=== PATIENT | female | born 1985 | race Caucasian/White ===

== ENCOUNTER 2017-08-25 10:19 | Inpatient (IN) | payer MEDICAID ==
[~2017-08-25] VITALS: Ht 157.5 cm; Wt 62.4 kg
[2017-08-25] MEDS ORDERED: PREN-93 PO (10:29)
[2017-08-25 10:30] VITALS: BP 111/73; PULSE 98; RESP 18; Ht 157.5 cm; Wt 62.4 kg
--- NOTE | 2017-08-25 12:09 | RADRPT ---
PROCEDURE: US OB biophysical profile. CLINICAL INDICATION: decreased movements, contractions, leaking fluid TECHNIQUE: Multiple sonographic images of the pelvis were obtained. The images were reviewed on a PACS workstation. COMPARISON: No prior studies are available for comparison. FINDINGS: There is a single viable intrauterine gestation. Cardiac activity is present with 122 beats per min julius. There is a vertex presentation. The placenta is posterior. There is no evidence of placental abruption. There is a decreased amount of amniotic fluid with an DAVID = 4.7 cm. Biophysical profile: movement 2/2 tone 2/2. breathing 2/2 DAVID 0/2 Total 04/09 RPTAT: AA . IMPRESSION: Abnormal biophysical profile. Oligohydramnios. . .Tyrone Nassar MD, MD Date Time Electronically viewed and signed by .Tyrone Nassar MD, MD on 08/25/2017 12:09 .S/
--- NOTE | 2017-08-25 12:39 | HP ---
Date/Time of Note Date/Time of Note DATE: 08/25/17 TIME: 12:38 OB - History Hx of Present Free Text/Dictation 34+wks With Suspected PPROM : 1 Para: 0 Care: Good Care Ultrasounds: Normal mid trimester US Obstetrical Complications: None Medical Complications: None Past Family/Social History * Past Medical, Surgical, Family and Obstetric Histories reviewed from chart. OB Admission Exam Vital Signs Vital Signs Vital Signs Date Time Temp Pulse Resp B/P Pulse Ox O2 Delivery O2 Flow Rate FiO2 08/25/17 10:30 98.8 98 18 111/73 98 Room Air Physical Exam Abdomen: WNL Extremities: Normal Cervical Dilatation: None Effacement: 0% Station: Ballotable Membranes: Intact Heart Rate: 140's Accelerations: Accelerations Present Decelerations: No Decelerations Varibility: Moderate OB Assessment/Plan Reason for admission: observation Plan: Expectant Management Other plan: ROM + ---->Negative DAVID 4.7 ---- IV hyration prenatalogy consult Continious monitoring PEG CARRANZA M.D. Aug 25, 2017 12:39
--- NOTE | 2017-08-25 12:43 | TRIAGE ---
OB Triage Datetime Report Generated by CPN: 08/25/2017 12:43 Datetime: 08/25/2017 11:31 Vaginal Exam Dilatation (cms): 0.0 Datetime: 08/25/2017 10:26 Assessment Type: Triage Maternal Assessment Level of Consciousness: Fully Conscious DTR's/Clonus: DTRs 2+; No Clonus Headache: Denies Blurred Vision: No Respiratory Effort: Unlabored; Regular Rhythm; Equal Expansion Breath Sounds, Left: Clear and Equal Breath Sounds, Right: Clear and Equal Nausea/Vomiting: Denies RUQ Epigastric Pain: Denies Lower Extremities Edema: None Degree: None Upper Extremities Edema: None Degree: None Facial Edema: None Fall Risk Assessment History of Falling: (0) No Secondary Diagnosis: (0) No Ambulatory Aid: (0) Bedrest/Nurse Assist IV Therapy: (0) No Gait: (0) Normal/Bedrest/Immobile Mental Status: (0) Oriented to Own Ability Fall Score: 0 Fall Risk Score Definition: No Risk: No action required Datetime: 08/25/2017 10:25 Time of Arrival: 08/25/2017 10:07 EGA: 34.4 Arrived By: Ambulatory Arrived From: Home Chief Complaint: PT HERE C/O VAGINAL LEAKING Movement: Present Contractions: Denies/Absent Rupture of Membranes: Unsure Vaginal Bleeding: None Vaginal Discharge: Present Recent Sexual Intercouse: Denies Abdominal Trauma: Not Applicable Patient Complaints: None Time Provider Notified: 08/25/2017 10:40 Provider Notified: GHAYOORI Initial Plan: ROM PLUS, BPP, SVE Datetime: 08/25/2017 10:23 Labor Evaluation Monitor Mode: External Heart Rate Monitor Mode: External US
[2017-08-25] MEDS: LACTATED RINGER'S 1,000 ML IV SCH ×2 (13:00→19:07)
[2017-08-26] MEDS: LACTATED RINGER'S 1,000 ML IV SCH ×3 (02:53→18:23)
[2017-08-26] MEDS: PRENATAL VITAMIN PO SCH (08:55)
--- NOTE | 2017-08-26 15:13 | RADRPT ---
PROCEDURE: US evaluation of amniotic fluid volume. CLINICAL INDICATION: Low amniotic fluid volume. TECHNIQUE: Multiple sonographic images of the gravid uterus were obtained utilizing galloway-scale lo ging. Sagittal and transverse images were obtained. The images were reviewed on a PACS workstation . DAVID was measured. COMPARISON: 08/25/2017. FINDINGS: There is a single live intrauterine . heart rate is 166 beats per minute. Position is cephalic. Placenta is anterior grade 1 with no abruption or previa. DAVID is 7.7 cm. (Normal = 5-20 cm.) IMPRESSION: 1. DAVID is 7.7 cm. RPTAT: QQ .Jackson Orozco MD, Date Time Electronically viewed and signed by .Jackson Orozco MD, on 08/26/2017 15:12 .R/
--- NOTE | 2017-08-26 17:49 | QN ---
Documentation Comment Afebrile vital signs are stable Denies leakage of fluid from the vagina, commended patient to use dry Pad, there was no sign of leakage after patient walking, standing or sitting, DAVID today 7.4 recommended hydration, repeat DAVID CHRISTEL Henson MD Aug 26, 2017 17:49
[2017-08-27] MEDS: LACTATED RINGER'S 1,000 ML IV SCH ×3 (02:04→18:06)
--- NOTE | 2017-08-27 09:13 | RADRPT ---
PROCEDURE: US OB. CLINICAL INDICATION: Leaking fluid , pain TECHNIQUE: Transabdominal views of the pelvis are available for review. COMPARISON: US PELVIS 08/26/2017 FINDINGS: There is a single intrauterine gestation in a vertex position. The heart rate is noted at 152 bpm. The placenta is anterior. The DAVID measures 7.2 cm. RPTAT: AA IMPRESSION: Mild oligohydramnios. .Tyrone Nassar MD, MD Date Time Electronically viewed and signed by .Tyrone Nassar MD, MD on 08/27/2017 09:13 .S/
[2017-08-27] MEDS: PRENATAL VITAMIN PO SCH (09:34)
--- NOTE | 2017-08-27 10:22 | DS ---
Date/Time of Note Date/Time of Note DATE: 08/27/17 TIME: 10:19 Obstetrical Discharge Record Final Diagnosis Final Diagnosis: not delivered Complications Other (Rule out premature rupture of membrane, low DAVID) Rupture of Membranes: No Condition on Discharge Physical Assessment Voiding: Yes Bowel Movement: Yes Calf Tenderness: No Patient Condition: Good CHRISTEL ARBOLEDA MD Aug 27, 2017 10:22
--- NOTE | 2017-08-27 10:37 | PDOCDIS ---
Discharge Instructions CONDITION Patient Condition: Good HOME CARE INSTRUCTIONS: Diet Instructions: Regular ACTIVITY: Activity Restrictions: No Restrictions Bathing Restrictions: Shower FOLLOW UP/APPOINTMENTS Follow-up Plan 34 weeks 4 days G1 p 0 was admitted to rule out premature rupture of membrane with DAVID of 4.7 after adequate hydration her DAVID is ranging between 7.4 to 7.2, all tests for premature rupture of membrane has been negative, category 1 heart tracing , perinatologist recommended to discharge patient, she will be [facility] at [facility], she has an appointment to repeat DAVID on08/29/17 at triage unit of [facility], received adequate labor instructions. CHRISTEL ARBOLEDA MD Aug 27, 2017 10:37
[2017-08-28] MEDS: LACTATED RINGER'S 1,000 ML IV SCH ×2 (01:34→08:54)
--- NOTE | 2017-08-28 02:03 | CONS ---
DATE OF ADMISSION: 08/25/2017 DATE OF CONSULTATION: 08/27/2017 HISTORY OF PRESENT ILLNESS: The patient is a 32-year-old who presented with complaint of contractio ns. She was admitted because of low DAVID. At the time of admission 2 days ago her DAVID was 4.6. The repeat yesterday was 7.2 and 7.4 cm, and today is 7.2 cm. They did a ROM Plus and the result was n egative, and the patient after reverse Trendelenburg and walking, it came back negative; however, be fore admission she experienced twice leakage of fluid to the point that she had to change her underw ear twice. Since then she mentioned that it has been stopped. Her history overall is not significant. heart tone is reassuring. She has no contractions. IMPRESSION: Intrauterine at 34 weeks and 6 days with oligohydramnios and ROM Plus negativ e; however, her history is very dubious for rupture of membranes. Also, after over almost 72 hours of fluid hydration, her DAVID has essentially remained at about 7.2 cm. RECOMMENDATIONS: Continue with IV hydration. Re-evaluate the DAVID tomorrow. If the DAVID is above 8 cm, then we can consider discharge home with very much precautions for rupture of the membrane and t hen maternal fever and she needs to return on Thursday at the latest to recheck the amniotic fluid ind ex. If the fluid is less than 8 cm then it is best for her to be in the hospital and the chance of rupture of membrane is high. Dictated By: MITCH MCDERMOTT/KAYE Conf#: [id number] DID#: [id number]
[2017-08-28] MEDS: PRENATAL VITAMIN PO SCH (08:54)
--- NOTE | 2017-08-28 09:22 | RADRPT ---
PROCEDURE: US OB. CLINICAL INDICATION: Low DAVID , pain TECHNIQUE: Transabdominal views of the pelvis are available for review. COMPARISON: US 08/27/2017 FINDINGS: There is a single intrauterine gestation in a vertex position. The heart rate is noted at 139 bpm. The placenta is anterior. The DAVID measures 6.8 cm. RPTAT: AA IMPRESSION: Slightly decreased DAVID measuring 6.8 cm. .Tyrone Nassar MD, MD Date Time Electronically viewed and signed by .Tyrone Nassar MD, on 08/28/2017 09:22 .S/
--- NOTE | 2017-08-28 09:41 | QN ---
Documentation Comment She has been on IV hydration since admission her DAVID on admission 4.7 went up to 7.2 ,negative ROM plus , denies any leakage from the vagina or dampness on sanitary pad, her DAVID went down from 7.2 yesterday to6.8 this morning, telephone consult with perinatologist recommended stop IV hydration, only oral, repeat DAVID a.m. heart rate category 1 CHRISTEL ARBOLEDA MD Aug 28, 2017 09:40
[2017-08-28] MEDS ORDERED: AMPICILLIN 2 GM/NS (PMX) 100 ML IVPB ONE (10:00)
[2017-08-28] MEDS: AMPICILLIN 1 GM/NS (PMX) 50 ML IVPB SCH ×3 (13:48→20:58)
--- NOTE | 2017-08-28 16:31 | QN ---
Documentation Comment I spoke with Dr. Ho this AM regarding Ms Bell. She has had low fluid, somewhat responsive to PO hydration. I agree with the plan to switch to PO hydration; if she can maintain an DAVID of at least 6 with PO hydration, I would favor discharging her with twice weekly follow up as an outpatient. OMER WARREN MD Aug 28, 2017 16:31
[2017-08-29] MEDS: AMPICILLIN 1 GM/NS (PMX) 50 ML IVPB SCH ×3 (01:04→09:16)
[2017-08-29] MEDS: PRENATAL VITAMIN PO SCH (09:15)
--- NOTE | 2017-08-29 09:15 | RADRPT ---
PROCEDURE: US evaluation of amniotic fluid volume. CLINICAL INDICATION: Low amniotic fluid volume. TECHNIQUE: Multiple sonographic images of the gravid uterus were obtained utilizing galloway-scale lo ging. Sagittal and transverse images were obtained. The images were reviewed on a PACS workstation . DAVID was measured. COMPARISON: 08/28/2017. FINDINGS: There is a single live intrauterine . heart rate is 144 beats per minute. Position is cephalic. Placenta is anterior grade 1 with no abruption or previa. DAVID is 8.0 cm. (Normal = 5-20 cm.) IMPRESSION: 1. DAVID is 8.0 cm. RPTAT: QQ .Jackson Orozco MD, Date Time Electronically viewed and signed by .Jackson Orozco MD, on 08/29/2017 09:15 .R/
--- NOTE | 2017-08-29 11:28 | DS ---
Date/Time of Note Date/Time of Note DATE: 08/29/17 TIME: 11:17 Discharge Summary Admission/Discharge Info Admit Date/Time Aug 25, 2017 at 12:35 Discharge Date/Time 2016 at 11:30 am Discharge Diagnosis 34 weeks+ admitted to the hospital to rule out premature rupture of membrane old tests were negative due to low DAVID patient was kept in the hospital for further evaluation of amniotic fluid this morning ultrasound report for DAVID was 8 per perinatologist recommendation she she is discharged home with recommendation to return to triage unit on August 30, 2017 the morning to repeat DAVID . And advised return to the hospital if. Experiencing fluid leakage from the vagina or any other symptoms , other villegas keep the appointment with perinatology clinic and clinic she is receiving her care. Patient Condition: Good Procedures Workup for rule out premature rupture of membrane, Hx of Present Illness 34 weeks 4 days , suspected premature rupture of membrane, all tests were negative, at the time of discharge DAVID 8, recommended to return to the hospital a.m. to repeat DAVID Hospital Course Satisfactory Home Meds Reported Medications Vit No.124/Iron/FA ( Vitamin Tablet) 1 Each Tablet, 1 EACH PO DAILY, TAB 08/25/17 Follow-up Plan 34 weeks 4 days G1 p 0 was admitted to rule out premature rupture of membrane with DAVID of 4.7 after adequate hydration her DAVID is ranging between 7.4 to 7.2, all tests for premature rupture of membrane has been negative, category 1 heart tracing , perinatologist recommended to discharge patient, she will be followed at [facility], she has an appointment to repeat DAVID on08/29/17 at triage unit of [facility], received adequate labor instructions. Primary Care Provider Care Physician No Primary Time spent on discharge: < 30 minutes CHRISTEL ARBOLEDA MD Aug 29, 2017 11:28
== END 2017-08-29 12:10 | disposition home or self-care (01) | DRG 780 ==
LOC: OBT 10:19 → L-D 10:19 → OBT 12:35 → L-D 12:35 → OBG 14:41
PROVIDERS: ADMIT Obstetrics & Gynecology; ATTEND Obstetrics & Gynecology
DX: O47.03 False labor before 37 completed weeks of gestation, third trimester (principal); Z3A.34 34 weeks gestation of pregnancy
CPT/HCPCS: 76815; 76816; 76818; 84112; G0463; J0290; J7120

== ENCOUNTER 2017-08-30 08:07 | Outpatient (CLI) | payer MEDICAID ==
[~2017-08-30 08:07] MED LIST: PREN-93 PO
--- NOTE | 2017-08-30 08:48 | RADRPT ---
PROCEDURE: OB ultrasound for biophysical profile CLINICAL INDICATION: Oligohydramnios TECHNIQUE: Multiple sonographic images of the pelvis were obtained. Transabdominal views of the g ravid uterus are available for review. The images were reviewed on a PACS workstation. COMPARISON: OB ultrasound for DAVID dated 08/29/2017 FINDINGS: breathing movement = 2/2 tone = 2/2 motion = 2/2 DAVID = 2/2 DAVID = 7.6 cm Single live intrauterine with cardiac activity of 150 bpm. position is cephal ic. The placenta is anterior. IMPRESSION: 1. Single live intrauterine gestation. 2. Biophysical profile = 8/8. 3. DAVID = 7.6 cm. No significant interval change. RPTAT: HH .Lor Cr MD, Date Time Electronically viewed and signed by .Lor Cr MD, on 08/30/2017 08:47 .G/
[2017-08-30] MEDS ORDERED: LACTATED RINGER'S 1,000 ML IV SCH (09:30)
[2017-08-30 09:40] LABS: ADD UMIC YES; UR ASCORBIC ACID NEGATIVE (NEGATIVE); UR BILIRUBIN (Dip) NEGATIVE (NEGATIVE); UR BLOOD (Dip) 1+ mg/dL (NEGATIVE); UR CLARITY CLEAR (CLEAR); UR COLOR STRAW (YELLOW); UR GLUCOSE (Dip) NEGATIVE (NEGATIVE); UR KETONES (Dip) NEGATIVE (NEGATIVE); UR LEUKOCYTE ESTERASE (Dip) 1+ Leu/ul (NEGATIVE); UR NITRITE (Dip) NEGATIVE (NEGATIVE); UR RBC 3 /HPF (0-5); UR SPECIFIC GRAVITY (Dip) 1.004 (1.003-1.030); UR SQUAMOUS EPITHELIAL CELL FEW /HPF (FEW); UR TOTAL PROTEIN (Dip) NEGATIVE (NEGATIVE); UR UROBILINOGEN (Dip) NEGATIVE (NEGATIVE)
--- NOTE | 2017-08-30 12:02 | RADRPT ---
PROCEDURE: Obstetrical ultrasound for biophysical profile CLINICAL INDICATION: Biophysical profile. . TECHNIQUE: Obstetrical ultrasound of the uterus for biophysical profile. Transabdominal views are obtained. COMPARISON: 08/29/2017 FINDINGS: Single intrauterine gestation. Presentation: Cephalic. Placenta: Anterior. No evidence of placental abruption. No evidence of placenta previa. breathing movement = 2/2 tone = 2/2 motion = 2/2 DAVID = 2/2 DAVID = 9.5 cm heart rate: 146 beats per minute IMPRESSION: Single intrauterine gestation. Biophysical profile 06/09 RPTAT: AADD .Allan Ford MD, MD Date Time Electronically viewed and signed by .Allan Ford MD, on 08/30/2017 12:02 .B/
--- NOTE | 2017-08-30 13:09 | TRIAGE ---
OB Triage Datetime Report Generated by CPN: 08/30/2017 13:08 Datetime: 08/30/2017 12:20 Stage of : OB Triage Datetime: 08/30/2017 12:12 Monitor Mode: External US Datetime: 08/30/2017 11:27 Frequency: 0 Monitor Mode: External Pattern: Normal: <= 5 Contractions in 10 Minutes Resting [place]: Relaxed FHR Baseline Rate: 135 Monitor Mode: External US Variability: Moderate 6-25 bpm Accelerations: 10X10 Decelerations: None Category: Category I Pain Scale: 0 Pain Presence: None/Denies Pain Type: N/A Pain Goal: 3 Pain Relief Measures: Comfort Measures Datetime: 08/30/2017 10:30 Frequency: 0 Monitor Mode: External Resting [place]: Relaxed FHR Baseline Rate: 135 Monitor Mode: External US Variability: Moderate 6-25 bpm Accelerations: 10X10 Decelerations: None Category: Category I Pain Scale: 0 Pain Presence: None/Denies Pain Type: N/A Pain Goal: 3 Pain Relief Measures: Comfort Measures Datetime: 08/30/2017 09:28 Frequency: x1 Monitor Mode: External Duration (sec)2399: 50 Quality: Mild Pattern: Normal: <= 5 Contractions in 10 Minutes Resting [place]: Relaxed Contraction Comments: denies feeling FHR Baseline Rate: 135 Monitor Mode: External US Variability: Moderate 6-25 bpm Accelerations: 10X10 Decelerations: None Category: Category I Pain Scale: 0 Pain Presence: None/Denies Pain Type: N/A Pain Goal: 3 Datetime: 08/30/2017 09:15 Stage of : OB Triage Datetime: 08/30/2017 08:22 Stage of : OB Triage Assessment Type: Triage Level of Consciousness: Fully Conscious DTR's/Clonus: DTRs 2+; No Clonus Headache: Denies Blurred Vision: No Respiratory Effort: Unlabored; Regular Rhythm; Equal Expansion Breath Sounds, Left: Clear and Equal Breath Sounds, Right: Clear and Equal Nausea/Vomiting: Denies RUQ Epigastric Pain: Denies Facial Edema: None Temperature Route: Axillary History of Falling: (0) No Secondary Diagnosis: (0) No Ambulatory Aid: (0) Bedrest/Nurse Assist IV Therapy: (0) No Gait: (0) Normal/Bedrest/Immobile Mental Status: (0) Oriented to Own Ability Fall Score: 0 Fall Risk Score Definition: No Risk: No action required Frequency: 3-5 Monitor Mode: External Duration (sec)2399: 30-50 Quality: Mild Pattern: Normal: <= 5 Contractions in 10 Minutes Resting [place]: Relaxed FHR Baseline Rate: 135 Monitor Mode: External US Variability: Moderate 6-25 bpm Accelerations: 10X10 Decelerations: None Category: Category I Pain Scale: 0 Pain Presence: None/Denies Pain Type: N/A Pain Goal: 3 Pain Relief Measures: Comfort Measures Datetime: 08/30/2017 08:20 Time of Arrival: 08/30/2017 08:10 EGA: 35.2 Arrived By: Ambulatory Arrived From: Home Chief Complaint: F/U LOW DAVID, DENIES BLEEDING, UC'S OR LEAKING Movement: Decreased Contractions: Denies/Absent Rupture of Membranes: Denies Vaginal Bleeding: None Vaginal Discharge: Denies Recent Sexual Intercouse: Denies Abdominal Trauma: Not Applicable Patient Complaints: Urinary Frequency Time Provider Notified: 08/30/2017 09:15 Provider Notified: [email or web address] Initial Plan: MONITOR, U/A, BPP/DAVID, iv hydration, repeat david Datetime: 08/29/2017 11:06 Frequency: occasional Monitor Mode: External Quality: Mild Resting [place]: Relaxed Contraction Comments: pt denies feeling contractions, leaking of fluid, or blood from vagina. stat es fetus is actaive FHR Baseline Rate: 120 Monitor Mode: External US FHR Baseline Changes: No Baseline Change Variability: Moderate 6-25 bpm Accelerations: 15X15 Decelerations: None Category: Category I Datetime: 08/29/2017 09:26 Assessment Type: Ongoing Assessment Level of Consciousness: Fully Conscious DTR's/Clonus: DTRs 2+; No Clonus Headache: Denies Blurred Vision: No Respiratory Effort: Unlabored; Regular Rhythm; Equal Expansion Breath Sounds, Left: Clear and Equal Breath Sounds, Right: Clear and Equal Nausea/Vomiting: Denies RUQ Epigastric Pain: Denies Facial Edema: None History of Falling: (0) No Secondary Diagnosis: (0) No Ambulatory Aid: (0) Bedrest/Nurse Assist IV Therapy: (20) Yes Gait: (0) Normal/Bedrest/Immobile Mental Status: (0) Oriented to Own Ability Fall Score: 20 Fall Risk Score Definition: No Risk: No action required Datetime: 08/29/2017 08:00 Frequency: 0 Monitor Mode: External Resting [place]: Relaxed FHR Baseline Rate: 130 Monitor Mode: External US FHR Baseline Changes: No Baseline Change Variability: Moderate 6-25 bpm Accelerations: 15X15 Decelerations: None Category: Category I Datetime: 08/29/2017 07:39 Frequency: 0 Monitor Mode: External Resting [place]: Relaxed FHR Baseline Rate: 120 Monitor Mode: External US FHR Baseline Changes: No Baseline Change Variability: Moderate 6-25 bpm Accelerations: 15X15 Decelerations: None Category: Category I Datetime: 08/29/2017 07:00 Frequency: x5 Monitor Mode: External Duration (sec)2399: 40-90 Quality: Mild Resting [place]: Relaxed Contraction Comments: pt without complaint of uc pain. FHR Baseline Rate: 125 Monitor Mode: External US FHR Baseline Changes: No Baseline Change Variability: Moderate 6-25 bpm Accelerations: 15X15 Decelerations: None Category: Category I Datetime: 08/29/2017 06:00 Frequency: none Monitor Mode: External Resting [place]: Relaxed FHR Baseline Rate: 125 Monitor Mode: External US FHR Baseline Changes: No Baseline Change Variability: Moderate 6-25 bpm Accelerations: 15X15 Decelerations: None Category: Category I Datetime: 08/29/2017 05:33 Stage of : Antepartum Temperature Route: Oral Datetime: 08/29/2017 05:00 Frequency: none Monitor Mode: External Resting [place]: Relaxed FHR Baseline Rate: 125 Monitor Mode: External US FHR Baseline Changes: No Baseline Change Variability: Moderate 6-25 bpm Accelerations: 15X15 Decelerations: None Category: Category I Pain Scale: 0 Pain Presence: None/Denies Datetime: 08/29/2017 04:00 Frequency: none Monitor Mode: External Resting [place]: Relaxed FHR Baseline Rate: 130 Monitor Mode: External US FHR Baseline Changes: No Baseline Change Variability: Moderate 6-25 bpm Accelerations: 15X15 Decelerations: None Category: Category I Datetime: 08/29/2017 03:00 Frequency: x1 Monitor Mode: External Duration (sec)2399: 70 Quality: Mild Resting [place]: Relaxed Contraction Comments: pt without complaint of uc pain. FHR Baseline Rate: 130 Monitor Mode: External US FHR Baseline Changes: No Baseline Change Variability: Moderate 6-25 bpm Accelerations: 15X15 Decelerations: Variable Category: Category II Datetime: 08/29/2017 02:00 Frequency: x4 Monitor Mode: External Duration (sec)2399: 50-90 Quality: Mild Resting [place]: Relaxed Contraction Comments: pt without complaint of uc pain. FHR Baseline Rate: 125 Monitor Mode: External US FHR Baseline Changes: No Baseline Change Variability: Moderate 6-25 bpm Accelerations: 15X15 Decelerations: None Category: Category I Datetime: 08/29/2017 01:00 Frequency: none Monitor Mode: External Resting [place]: Relaxed FHR Baseline Rate: 130 Monitor Mode: External US FHR Baseline Changes: No Baseline Change Variability: Moderate 6-25 bpm Accelerations: 15X15 Decelerations: None Category: Category I Datetime: 08/29/2017 00:00 Frequency: x2 Monitor Mode: External Duration (sec)2399: 50-60 Quality: Mild Resting [place]: Relaxed Contraction Comments: pt without complaint of uc pain. FHR Baseline Rate: 135 Monitor Mode: External US FHR Baseline Changes: No Baseline Change Variability: Moderate 6-25 bpm Accelerations: 15X15 Decelerations: None Category: Category I Datetime: 08/28/2017 23:46 Stage of : Antepartum Temperature Route: Oral Datetime: 08/28/2017 23:00 Frequency: none Monitor Mode: External Resting [place]: Relaxed FHR Baseline Rate: 130 Monitor Mode: External US FHR Baseline Changes: No Baseline Change Variability: Moderate 6-25 bpm Accelerations: 15X15 Decelerations: None Category: Category I Datetime: 08/28/2017 22:00 Frequency: x1 Monitor Mode: External Duration (sec)2399: 40 Quality: Mild Resting [place]: Relaxed Contraction Comments: pt without complaint of uc pain. FHR Baseline Rate: 135 Monitor Mode: External US FHR Baseline Changes: No Baseline Change Variability: Moderate 6-25 bpm Accelerations: 15X15 Decelerations: None Category: Category I Datetime: 08/28/2017 21:00 Frequency: x2 Monitor Mode: External Duration (sec)2399: 40 Quality: Mild Resting [place]: Relaxed Contraction Comments: pt without complaint of uc pain. FHR Baseline Rate: 135 Monitor Mode: External US FHR Baseline Changes: No Baseline Change Variability: Moderate 6-25 bpm Accelerations: 15X15 Decelerations: None Category: Category I Datetime: 08/28/2017 20:00 Frequency: none Monitor Mode: External Resting [place]: Relaxed FHR Baseline Rate: 135 Monitor Mode: External US FHR Baseline Changes: No Baseline Change Variability: Moderate 6-25 bpm Accelerations: 15X15 Decelerations: None Category: Category I Datetime: 08/28/2017 19:39 Assessment Type: Ongoing Assessment Level of Consciousness: Fully Conscious DTR's/Clonus: DTRs 2+; No Clonus Headache: Denies Blurred Vision: No Respiratory Effort: Unlabored; Regular Rhythm; Equal Expansion Breath Sounds, Left: Clear and Equal Breath Sounds, Right: Clear and Equal Nausea/Vomiting: Denies RUQ Epigastric Pain: Denies Lower Extremities Edema: None Degree: None Upper Extremities Edema: None Degree: None Facial Edema: None History of Falling: (0) No Secondary Diagnosis: (0) No Ambulatory Aid: (0) Bedrest/Nurse Assist IV Therapy: (0) No Gait: (0) Normal/Bedrest/Immobile Mental Status: (0) Oriented to Own Ability Fall Score: 0 Fall Risk Score Definition: No Risk: No action required Datetime: 08/28/2017 19:36 Stage of : Antepartum Temperature Route: Oral Datetime: 08/28/2017 18:48 Frequency: 0 Monitor Mode: External Duration (sec)2399: 0 Pattern: Normal: <= 5 Contractions in 10 Minutes Resting [place]: Relaxed FHR Baseline Rate: 135 Monitor Mode: External US FHR Baseline Changes: No Baseline Change Variability: Moderate 6-25 bpm Accelerations: 15X15 Decelerations: None Category: Category I Datetime: 08/28/2017 17:56 Frequency: 0 Monitor Mode: External Duration (sec)2399: 0 Pattern: Normal: <= 5 Contractions in 10 Minutes Resting [place]: Relaxed FHR Baseline Rate: 135 Monitor Mode: External US FHR Baseline Changes: No Baseline Change Variability: Moderate 6-25 bpm Accelerations: 15X15 Decelerations: None Category: Category I Datetime: 08/28/2017 17:00 Frequency: 0 Monitor Mode: External Duration (sec)2399: 0 Pattern: Normal: <= 5 Contractions in 10 Minutes Resting [place]: Relaxed Contraction Comments: DENIES FEELING ANY UC'S FHR Baseline Rate: 135 Monitor Mode: External US FHR Baseline Changes: No Baseline Change Variability: Moderate 6-25 bpm Accelerations: 15X15 Decelerations: None Category: Category I Datetime: 08/28/2017 15:59 Frequency: 0 Monitor Mode: External Duration (sec)2399: 0 Pattern: Normal: <= 5 Contractions in 10 Minutes Resting [place]: Relaxed FHR Baseline Rate: 130 Monitor Mode: External US FHR Baseline Changes: No Baseline Change Variability: Moderate 6-25 bpm Accelerations: 15X15 Decelerations: None Category: Category I Datetime: 08/28/2017 14:59 FHR Baseline Rate: 130 Monitor Mode: External US FHR Baseline Changes: No Baseline Change Variability: Moderate 6-25 bpm Accelerations: 15X15 Decelerations: None Category: Category I Datetime: 08/28/2017 14:00 FHR Baseline Rate: 125 Monitor Mode: External US FHR Baseline Changes: No Baseline Change Variability: Moderate 6-25 bpm Accelerations: 15X15 Decelerations: None Category: Category I Comments: PT SITTING UP EATING LUNCH Datetime: 08/28/2017 12:59 Frequency: ONE NOTED IN ONE HOUR Monitor Mode: External Duration (sec)2399: 60 Pattern: Normal: <= 5 Contractions in 10 Minutes Resting [place]: Relaxed FHR Baseline Rate: 125 Monitor Mode: External US FHR Baseline Changes: No Baseline Change Variability: Moderate 6-25 bpm Accelerations: 15X15 Decelerations: None Category: Category I Datetime: 08/28/2017 12:00 Frequency: 2 NOTED IN ONE HOUR Monitor Mode: External Duration (sec)2399: 40-60 Pattern: Normal: <= 5 Contractions in 10 Minutes Resting [place]: Relaxed FHR Baseline Rate: 125 Monitor Mode: External US FHR Baseline Changes: No Baseline Change Variability: Moderate 6-25 bpm Accelerations: 15X15 Decelerations: None Category: Category I Datetime: 08/28/2017 10:56 Frequency: 0 Monitor Mode: External Duration (sec)2399: 0 Pattern: Normal: <= 5 Contractions in 10 Minutes Resting [place]: Relaxed FHR Baseline Rate: 130 Monitor Mode: External US FHR Baseline Changes: No Baseline Change Variability: Moderate 6-25 bpm Accelerations: 15X15 Decelerations: None Category: Category I Datetime: 08/28/2017 10:00 Frequency: 0 Monitor Mode: External Duration (sec)2399: 0 Pattern: Normal: <= 5 Contractions in 10 Minutes Resting [place]: Relaxed Contraction Comments: DENIES FEELING ANY UC'S FHR Baseline Rate: 125 Monitor Mode: External US FHR Baseline Changes: No Baseline Change Variability: Moderate 6-25 bpm Accelerations: 15X15 Decelerations: None Category: Category I Datetime: 08/28/2017 09:00 Frequency: 0 Monitor Mode: External Duration (sec)2399: 0 Pattern: Normal: <= 5 Contractions in 10 Minutes Resting [place]: Relaxed FHR Baseline Rate: 125 Monitor Mode: External US FHR Baseline Changes: No Baseline Change Variability: Moderate 6-25 bpm Accelerations: 15X15 Decelerations: None Category: Category I Datetime: 08/28/2017 08:08 Assessment Type: Ongoing Assessment Level of Consciousness: Fully Conscious DTR's/Clonus: DTRs 2+; No Clonus Headache: Denies Blurred Vision: No Respiratory Effort: Unlabored; Regular Rhythm; Equal Expansion Breath Sounds, Left: Clear and Equal Breath Sounds, Right: Clear and Equal Nausea/Vomiting: Denies RUQ Epigastric Pain: Denies Lower Extremities Edema: None Degree: None Upper Extremities Edema: None Degree: None Facial Edema: None History of Falling: (0) No Secondary Diagnosis: (0) No Ambulatory Aid: (0) Bedrest/Nurse Assist IV Therapy: (20) Yes Gait: (0) Normal/Bedrest/Immobile Mental Status: (0) Oriented to Own Ability Fall Score: 20 Fall Risk Score Definition: No Risk: No action required Datetime: 08/28/2017 07:59 Frequency: 0 Monitor Mode: External Duration (sec)2399: 0 Pattern: Normal: <= 5 Contractions in 10 Minutes Resting [place]: Relaxed FHR Baseline Rate: 130 Monitor Mode: External US FHR Baseline Changes: No Baseline Change Variability: Moderate 6-25 bpm Accelerations: 15X15 Decelerations: None Category: Category I Datetime: 08/28/2017 07:00 Frequency: none Monitor Mode: External Resting [place]: Relaxed FHR Baseline Rate: 125 Monitor Mode: External US FHR Baseline Changes: No Baseline Change Variability: Moderate 6-25 bpm Accelerations: 15X15 Decelerations: None Category: Category I Datetime: 08/28/2017 06:00 Frequency: x2 Monitor Mode: External Duration (sec)2399: 50-80 Quality: Mild Resting [place]: Relaxed Contraction Comments: pt without compalint of uc pain. FHR Baseline Rate: 125 Monitor Mode: External US FHR Baseline Changes: No Baseline Change Variability: Moderate 6-25 bpm Accelerations: 15X15 Decelerations: None Category: Category I Pain Scale: 0 Pain Presence: None/Denies Datetime: 08/28/2017 05:57 Stage of : Antepartum Temperature Route: Oral Datetime: 08/28/2017 05:00 Frequency: none Monitor Mode: External Resting [place]: Relaxed FHR Baseline Rate: 125 Monitor Mode: External US FHR Baseline Changes: No Baseline Change Variability: Moderate 6-25 bpm Accelerations: 15X15 Decelerations: Variable Category: Category II Datetime: 08/28/2017 04:00 Frequency: none Monitor Mode: External Resting [place]: Relaxed FHR Baseline Rate: 125 Monitor Mode: External US FHR Baseline Changes: No Baseline Change Variability: Moderate 6-25 bpm Accelerations: 15X15 Decelerations: Variable Category: Category II Datetime: 08/28/2017 03:00 Frequency: none Monitor Mode: External Resting [place]: Relaxed FHR Baseline Rate: 125 Monitor Mode: External US FHR Baseline Changes: No Baseline Change Variability: Moderate 6-25 bpm Accelerations: 15X15 Decelerations: None Category: Category I Datetime: 08/28/2017 02:00 Frequency: none Monitor Mode: External Resting [place]: Relaxed FHR Baseline Rate: 130 Monitor Mode: External US FHR Baseline Changes: No Baseline Change Variability: Moderate 6-25 bpm Accelerations: 15X15 Decelerations: None Category: Category I Datetime: 08/28/2017 01:00 Frequency: none Monitor Mode: External Resting [place]: Relaxed FHR Baseline Rate: 135 Monitor Mode: External US FHR Baseline Changes: No Baseline Change Variability: Moderate 6-25 bpm Accelerations: 15X15 Decelerations: None Category: Category I Datetime: 08/28/2017 00:00 Frequency: none Monitor Mode: External Resting [place]: Relaxed FHR Baseline Rate: 135 Monitor Mode: External US FHR Baseline Changes: No Baseline Change Variability: Moderate 6-25 bpm Accelerations: 15X15 Decelerations: Variable Category: Category II Pain Scale: 0 Pain Presence: None/Denies Datetime: 08/27/2017 23:54 Stage of : Antepartum Temperature Route: Oral Datetime: 08/27/2017 23:00 Frequency: none Monitor Mode: External Resting [place]: Relaxed FHR Baseline Rate: 130 Monitor Mode: External US FHR Baseline Changes: No Baseline Change Variability: Moderate 6-25 bpm Accelerations: 15X15 Decelerations: None Category: Category I Datetime: 08/27/2017 22:00 Frequency: x3 Monitor Mode: External Duration (sec)2399: 40-70 Quality: Mild Resting [place]: Relaxed Contraction Comments: pt without complaint of uc pain. FHR Baseline Rate: 135 Monitor Mode: External US FHR Baseline Changes: No Baseline Change Variability: Moderate 6-25 bpm Accelerations: 15X15 Decelerations: None Category: Category I Datetime: 08/27/2017 21:00 Frequency: none Monitor Mode: External Resting [place]: Relaxed FHR Baseline Rate: 135 Monitor Mode: External US FHR Baseline Changes: No Baseline Change Variability: Moderate 6-25 bpm Accelerations: 15X15 Decelerations: None Category: Category I Datetime: 08/27/2017 20:49 Assessment Type: Ongoing Assessment Level of Consciousness: Fully Conscious DTR's/Clonus: DTRs 2+; No Clonus Headache: Denies Blurred Vision: No Respiratory Effort: Unlabored; Regular Rhythm; Equal Expansion Breath Sounds, Left: Clear and Equal Breath Sounds, Right: Clear and Equal Nausea/Vomiting: Denies RUQ Epigastric Pain: Denies Lower Extremities Edema: None Degree: None Upper Extremities Edema: None Degree: None Facial Edema: None History of Falling: (0) No Secondary Diagnosis: (0) No Ambulatory Aid: (0) Bedrest/Nurse Assist IV Therapy: (20) Yes Gait: (0) Normal/Bedrest/Immobile Mental Status: (0) Oriented to Own Ability Fall Score: 20 Fall Risk Score Definition: No Risk: No action required Datetime: 08/27/2017 20:48 Stage of : Antepartum Temperature Route: Oral Datetime: 08/27/2017 20:00 Frequency: none Monitor Mode: External Resting [place]: Relaxed FHR Baseline Rate: 135 Monitor Mode: External US FHR Baseline Changes: No Baseline Change Variability: Moderate 6-25 bpm Accelerations: 15X15 Decelerations: None Category: Category I Pain Scale: 0 Pain Presence: None/Denies Datetime: 08/27/2017 18:33 Frequency: 0 Monitor Mode: External FHR Baseline Rate: 135 Monitor Mode: External US FHR Baseline Changes: No Baseline Change Variability: Moderate 6-25 bpm Accelerations: 15X15 Decelerations: None Category: Category I Pain Presence: None/Denies Datetime: 08/27/2017 17:38 Frequency: 0 Monitor Mode: External FHR Baseline Rate: 140 Monitor Mode: External US FHR Baseline Changes: No Baseline Change Variability: Moderate 6-25 bpm Accelerations: 15X15 Decelerations: None Category: Category I Pain Presence: None/Denies Datetime: 08/27/2017 16:34 Frequency: 0 Monitor Mode: External FHR Baseline Rate: 130 Monitor Mode: External US FHR Baseline Changes: No Baseline Change Variability: Moderate 6-25 bpm Accelerations: 15X15 Decelerations: None Category: Category I Pain Presence: None/Denies Datetime: 08/27/2017 15:33 Frequency: 0 Monitor Mode: External FHR Baseline Rate: 130 Monitor Mode: External US FHR Baseline Changes: No Baseline Change Variability: Moderate 6-25 bpm Accelerations: 15X15 Decelerations: None Category: Category I Pain Presence: None/Denies Datetime: 08/27/2017 14:30 Frequency: 0 Monitor Mode: External FHR Baseline Rate: 130 Monitor Mode: External US FHR Baseline Changes: No Baseline Change Variability: Moderate 6-25 bpm Accelerations: 15X15 Decelerations: None Category: Category I Pain Presence: None/Denies Datetime: 08/27/2017 13:31 Frequency: 0 Monitor Mode: External FHR Baseline Rate: 130 Monitor Mode: External US FHR Baseline Changes: No Baseline Change Variability: Moderate 6-25 bpm Accelerations: 15X15 Decelerations: None Category: Category I Pain Presence: None/Denies Datetime: 08/27/2017 12:10 Frequency: 0 Monitor Mode: External FHR Baseline Rate: 130 Monitor Mode: External US FHR Baseline Changes: No Baseline Change Variability: Moderate 6-25 bpm Accelerations: 15X15 Decelerations: None Category: Category I Pain Presence: None/Denies Datetime: 08/27/2017 10:47 Frequency: 0 Monitor Mode: External FHR Baseline Rate: 135 Monitor Mode: External US FHR Baseline Changes: No Baseline Change Variability: Moderate 6-25 bpm Accelerations: 15X15 Decelerations: None Category: Category I Pain Presence: None/Denies Datetime: 08/27/2017 09:37 Frequency: 0 Monitor Mode: External Contraction Comments: PT DENIES FEELING ANY UC'S FHR Baseline Rate: 130 Monitor Mode: External US FHR Baseline Changes: No Baseline Change Variability: Moderate 6-25 bpm Accelerations: 15X15 Decelerations: None Category: Category I Pain Presence: None/Denies Datetime: 08/27/2017 08:30 Monitor Mode: External FHR Baseline Rate: 130 Monitor Mode: External US FHR Baseline Changes: No Baseline Change Variability: Moderate 6-25 bpm Accelerations: 15X15 Decelerations: None Category: Category I Pain Presence: None/Denies Datetime: 08/27/2017 07:32 Assessment Type: Ongoing Assessment Level of Consciousness: Fully Conscious DTR's/Clonus: DTRs 2+; No Clonus Headache: Denies Blurred Vision: No Respiratory Effort: Unlabored; Regular Rhythm; Equal Expansion Breath Sounds, Left: Clear and Equal Breath Sounds, Right: Clear and Equal Nausea/Vomiting: Denies RUQ Epigastric Pain: Denies Lower Extremities Edema: None Degree: None Upper Extremities Edema: None Degree: None Facial Edema: None History of Falling: (0) No Secondary Diagnosis: (0) No Ambulatory Aid: (0) Bedrest/Nurse Assist IV Therapy: (0) No Gait: (0) Normal/Bedrest/Immobile Mental Status: (0) Oriented to Own Ability Fall Score: 0 Fall Risk Score Definition: No Risk: No action required Frequency: 0 Monitor Mode: External FHR Baseline Rate: 120 Monitor Mode: External US FHR Baseline Changes: No Baseline Change Variability: Moderate 6-25 bpm Accelerations: 15X15 Decelerations: None Category: Category I Pain Presence: None/Denies Datetime: 08/27/2017 06:55 Stage of : Antepartum Frequency: X1 Monitor Mode: External Duration (sec)2399: 60 Quality: Mild Pattern: Normal: <= 5 Contractions in 10 Minutes Resting [place]: Relaxed FHR Baseline Rate: 120 Monitor Mode: External US Variability: Moderate 6-25 bpm Accelerations: 15X15 Decelerations: Variable Category: Category II Pain Presence: None/Denies Datetime: 08/27/2017 06:00 Stage of : Antepartum Frequency: 0 Monitor Mode: External Resting [place]: Relaxed FHR Baseline Rate: 125 Monitor Mode: External US Variability: Moderate 6-25 bpm Accelerations: 15X15 Decelerations: None Category: Category I Pain Presence: None/Denies Datetime: 08/27/2017 05:00 Stage of : Antepartum Frequency: 0 Monitor Mode: External Resting Tone Bailey'S [place]: Relaxed FHR Baseline Rate: 125 Monitor Mode: External US Variability: Moderate 6-25 bpm Accelerations: 15X15 Decelerations: None Category: Category I Pain Presence: None/Denies Datetime: 08/27/2017 04:00 Frequency: 0 Monitor Mode: External Resting Tone [place]: Relaxed FHR Baseline Rate: 125 Monitor Mode: External US Variability: Moderate 6-25 bpm Accelerations: 15X15 Decelerations: None Category: Category I Pain Presence: None/Denies Datetime: 08/27/2017 03:00 Frequency: 0 Monitor Mode: External Resting Tone [place]: Relaxed FHR Baseline Rate: 125 Monitor Mode: External US Variability: Moderate 6-25 bpm Accelerations: 15X15 Decelerations: None Category: Category I Pain Presence: None/Denies Datetime: 08/27/2017 02:00 Frequency: 0 Monitor Mode: External Resting Tone [place]: Relaxed FHR Baseline Rate: 125 Monitor Mode: External US Variability: Moderate 6-25 bpm Accelerations: 15X15 Decelerations: None Category: Category I Pain Presence: None/Denies Datetime: 08/27/2017 01:00 Frequency: 0 Monitor Mode: External Duration (sec)2399: denies Resting Tone [place]: Relaxed FHR Baseline Rate: 125 Monitor Mode: External US Variability: Moderate 6-25 bpm Accelerations: 15X15 Decelerations: None Category: Category I Pain Presence: None/Denies Datetime: 08/27/2017 00:51 Stage of : Antepartum Temperature Route: Oral Pain Presence: None/Denies Datetime: 08/27/2017 00:00 Frequency: 0 Monitor Mode: External Duration (sec)2399: DENIES Resting Tone [place]: Relaxed FHR Baseline Rate: 125 Monitor Mode: External US Variability: Moderate 6-25 bpm Accelerations: 15X15 Decelerations: None Category: Category I Pain Presence: None/Denies Datetime: 08/26/2017 23:00 Frequency: 0 Monitor Mode: External Duration (sec)2399: denies Resting Tone [place]: Relaxed FHR Baseline Rate: 130 Monitor Mode: External US Variability: Moderate 6-25 bpm Accelerations: 15X15 Decelerations: None Category: Category I Pain Presence: None/Denies Datetime: 08/26/2017 22:00 Frequency: x1 Monitor Mode: External Duration (sec)2399: 70 Quality: Mild Resting Tone [place]: Relaxed FHR Baseline Rate: 125 Monitor Mode: External US Variability: Moderate 6-25 bpm Accelerations: 15X15 Decelerations: None Category: Category I Pain Presence: None/Denies Pain Type: N/A Datetime: 08/26/2017 21:00 Frequency: x2 Monitor Mode: External Duration (sec)2399: 60-70 Quality: Mild Resting Tone [place]: Relaxed FHR Baseline Rate: 130 Monitor Mode: External US Variability: Moderate 6-25 bpm Accelerations: 15X15 Decelerations: None Category: Category I Pain Presence: None/Denies Datetime: 08/26/2017 20:00 Frequency: X3 Monitor Mode: External Duration (sec)2399: 40-50 Quality: Mild Resting Tone [place]: Relaxed FHR Baseline Rate: 130 Monitor Mode: External US Variability: Moderate 6-25 bpm Accelerations: 15X15 Decelerations: None Category: Category I Pain Presence: None/Denies Datetime: 08/26/2017 19:23 Stage of : Antepartum Assessment Type: Ongoing Assessment Level of Consciousness: Fully Conscious DTR's/Clonus: DTRs 2+; No Clonus Headache: Denies Blurred Vision: No Respiratory Effort: Unlabored; Regular Rhythm; Equal Expansion Breath Sounds, Left: Clear and Equal Breath Sounds, Right: Clear and Equal Nausea/Vomiting: Denies RUQ Epigastric Pain: Denies Lower Extremities Edema: None Degree: None Upper Extremities Edema: None Degree: None Facial Edema: None Temperature Route: Oral History of Falling: (0) No Secondary Diagnosis: (0) No Ambulatory Aid: (0) Bedrest/Nurse Assist IV Therapy: (0) No Gait: (0) Normal/Bedrest/Immobile Mental Status: (0) Oriented to Own Ability Fall Score: 0 Fall Risk Score Definition: No Risk: No action required Membrane Status: Intact Datetime: 08/26/2017 19:00 Frequency: x3 Monitor Mode: External Duration (sec)2399: 60 Quality: Mild Resting Tone [place]: Relaxed FHR Baseline Rate: 130 Monitor Mode: External US FHR Baseline Changes: No Baseline Change Variability: Moderate 6-25 bpm Accelerations: 15X15 Datetime: 08/26/2017 18:00 Frequency: x2 Monitor Mode: External Duration (sec)2399: 80 Quality: Mild Resting Tone [place]: Relaxed FHR Baseline Rate: 130 Monitor Mode: External US FHR Baseline Changes: No Baseline Change Variability: Moderate 6-25 bpm Accelerations: 15X15 Decelerations: None Category: Category I Datetime: 08/26/2017 17:00 Frequency: x2 Monitor Mode: External Duration (sec)2399: 50 Resting Tone [place]: Relaxed FHR Baseline Rate: 125 Monitor Mode: External US FHR Baseline Changes: No Baseline Change Variability: Moderate 6-25 bpm Accelerations: 15X15 Decelerations: None Category: Category I Pain Scale: 0 Pain Presence: None/Denies Pain Type: N/A Datetime: 08/26/2017 16:00 Frequency: 0 Monitor Mode: External Resting Tone [place]: Relaxed FHR Baseline Rate: 125 Monitor Mode: External US FHR Baseline Changes: No Baseline Change Variability: Moderate 6-25 bpm Accelerations: 15X15 Decelerations: None Category: Category I Pain Scale: 0 Pain Presence: None/Denies Pain Type: N/A Datetime: 08/26/2017 15:55 Stage of : Antepartum Datetime: 08/26/2017 14:40 Monitor Mode: External FHR Baseline Rate: 125 Monitor Mode: External US FHR Baseline Changes: No Baseline Change Variability: Moderate 6-25 bpm Accelerations: 15X15 Decelerations: None Category: Category I Pain Scale: 0 Pain Presence: None/Denies Pain Type: N/A Datetime: 08/26/2017 14:21 Stage of : Antepartum Datetime: 08/26/2017 14:00 Stage of : Antepartum Datetime: 08/26/2017 13:40 Frequency: 0 Monitor Mode: External Resting Tone [place]: Relaxed FHR Baseline Rate: 130 Monitor Mode: External US FHR Baseline Changes: No Baseline Change Variability: Moderate 6-25 bpm Accelerations: 15X15 Decelerations: None Category: Category I Datetime: 08/26/2017 12:40 Frequency: x1 Monitor Mode: External Duration (sec)2399: 60 Quality: Mild Resting Tone [place]: Relaxed FHR Baseline Rate: 130 Monitor Mode: External US FHR Baseline Changes: No Baseline Change Variability: Moderate 6-25 bpm Accelerations: 15X15 Decelerations: Early Category: Category II Pain Scale: 0 Pain Presence: None/Denies Datetime: 08/26/2017 12:35 Stage of : Antepartum Datetime: 08/26/2017 11:55 Stage of : Antepartum Temperature Route: Oral Datetime: 08/26/2017 11:40 Frequency: 0 Monitor Mode: External Duration (sec)2399: 0 Resting Tone [place]: Relaxed FHR Baseline Rate: 125 Monitor Mode: External US FHR Baseline Changes: No Baseline Change Variability: Moderate 6-25 bpm Accelerations: 15X15 Decelerations: None Category: Category I Pain Scale: 0 Pain Type: N/A Datetime: 08/26/2017 11:05 Stage of : Antepartum Datetime: 08/26/2017 10:58 Stage of : Antepartum Datetime: 08/26/2017 10:40 Frequency: 0 Monitor Mode: External Duration (sec)2399: 0 Resting Tone [place]: Relaxed FHR Baseline Rate: 125 Monitor Mode: External US FHR Baseline Changes: No Baseline Change Variability: Moderate 6-25 bpm Accelerations: 15X15 Decelerations: None Category: Category I Datetime: 08/26/2017 09:40 Stage of : Antepartum Frequency: x3 Monitor Mode: External Duration (sec)2399: 50 Quality: Mild Resting Tone [place]: Relaxed FHR Baseline Rate: 130 Monitor Mode: External US FHR Baseline Changes: No Baseline Change Variability: Moderate 6-25 bpm Accelerations: 15X15 Decelerations: None Pain Scale: 0 Pain Presence: None/Denies Datetime: 08/26/2017 08:40 Stage of : Antepartum Level of Consciousness: Fully Conscious DTR's/Clonus: DTRs 2+; No Clonus Headache: Denies Breath Sounds, Left: Clear and Equal Breath Sounds, Right: Clear and Equal Frequency: x1 Monitor Mode: External Duration (sec)2399: 50 Quality: Mild Resting Tone [place]: Relaxed FHR Baseline Rate: 130 Monitor Mode: External US FHR Baseline Changes: No Baseline Change Variability: Moderate 6-25 bpm Accelerations: 15X15 Decelerations: None Pain Scale: 0 Pain Presence: None/Denies Datetime: 08/26/2017 07:40 Stage of : Antepartum Assessment Type: Ongoing Assessment Level of Consciousness: Fully Conscious DTR's/Clonus: DTRs 2+; No Clonus Headache: Denies Blurred Vision: No Respiratory Effort: Unlabored; Regular Rhythm; Equal Expansion Breath Sounds, Left: Clear and Equal Breath Sounds, Right: Clear and Equal Nausea/Vomiting: Denies RUQ Epigastric Pain: Denies Lower Extremities Edema: None Degree: None Upper Extremities Edema: None Degree: None Facial Edema: None Temperature Route: Oral History of Falling: (0) No Secondary Diagnosis: (0) No Ambulatory Aid: (0) Bedrest/Nurse Assist IV Therapy: (0) No Gait: (0) Normal/Bedrest/Immobile Mental Status: (0) Oriented to Own Ability Fall Score: 0 Fall Risk Score Definition: No Risk: No action required Frequency: x1 Monitor Mode: External Duration (sec)2399: 50 Quality: Mild Resting Tone [place]: Relaxed FHR Baseline Rate: 130 Monitor Mode: External US FHR Baseline Changes: No Baseline Change Variability: Moderate 6-25 bpm Accelerations: 15X15 Decelerations: None Pain Scale: 0 Pain Presence: None/Denies Datetime: 08/26/2017 06:00 Frequency: x3 Monitor Mode: External Duration (sec)2399: 40-60 Quality: Mild Resting Tone [place]: Relaxed FHR Baseline Rate: 135 Monitor Mode: External US Variability: Moderate 6-25 bpm Accelerations: 15X15 Decelerations: None Category: Category I Pain Presence: None/Denies Datetime: 08/26/2017 05:00 Frequency: x1 Monitor Mode: External Duration (sec)2399: 60 Quality: Mild Resting Tone [place]: Relaxed FHR Baseline Rate: 135 Monitor Mode: External US Variability: Moderate 6-25 bpm Accelerations: 15X15 Decelerations: None Category: Category I Pain Presence: None/Denies Datetime: 08/26/2017 04:00 Frequency: x4 Monitor Mode: External Duration (sec)2399: 50-70 Quality: Mild Resting Tone [place]: Relaxed FHR Baseline Rate: 135 Monitor Mode: External US Variability: Moderate 6-25 bpm Accelerations: 15X15 Decelerations: None Category: Category I Datetime: 08/26/2017 03:00 Frequency: x2 Monitor Mode: External Duration (sec)2399: 60-70 Quality: Mild Resting Tone [place]: Relaxed FHR Baseline Rate: 130 Monitor Mode: External US Variability: Moderate 6-25 bpm Accelerations: 15X15 Decelerations: Variable Category: Category II Datetime: 08/26/2017 02:00 Frequency: 0 Monitor Mode: External Duration (sec)2399: denies Resting Tone [place]: Relaxed FHR Baseline Rate: 125 Monitor Mode: External US Variability: Moderate 6-25 bpm Accelerations: 15X15 Decelerations: None Category: Category I Pain Presence: None/Denies Datetime: 08/26/2017 01:00 Frequency: X1 Monitor Mode: External Duration (sec)2399: 70 Quality: Mild Resting Tone [place]: Relaxed FHR Baseline Rate: 135 Monitor Mode: External US Variability: Moderate 6-25 bpm Accelerations: 15X15 Decelerations: None Category: Category I Pain Presence: None/Denies Datetime: 08/26/2017 00:00 Frequency: X1 Monitor Mode: External Duration (sec)2399: 60 Quality: Mild Resting Tone [place]: Relaxed FHR Baseline Rate: 130 Monitor Mode: External US Variability: Moderate 6-25 bpm Accelerations: 15X15 Decelerations: None Category: Category I Pain Presence: None/Denies Datetime: 08/25/2017 23:00 Frequency: X2 Monitor Mode: External Duration (sec)2399: 40-60 Quality: Mild Resting Tone [place]: Relaxed FHR Baseline Rate: 135 Monitor Mode: External US Variability: Moderate 6-25 bpm Accelerations: 15X15 Decelerations: None Category: Category I Pain Presence: None/Denies Datetime: 08/25/2017 22:00 Frequency: 0 Monitor Mode: External Resting Tone [place]: Relaxed FHR Baseline Rate: 135 Monitor Mode: External US Variability: Moderate 6-25 bpm Accelerations: 15X15 Decelerations: None Category: Category I Pain Scale: 0 Pain Presence: None/Denies Datetime: 08/25/2017 21:00 Frequency: OCASSIONAL Monitor Mode: External Duration (sec)2399: 40-50 Quality: Mild Resting Tone [place]: Relaxed FHR Baseline Rate: 135 Monitor Mode: External US Variability: Moderate 6-25 bpm Accelerations: 15X15 Decelerations: None Category: Category I Pain Presence: None/Denies Datetime: 08/25/2017 20:00 Frequency: IRREGULAR Monitor Mode: External Duration (sec)2399: 40-70 Quality: Mild Resting Tone [place]: Relaxed Contraction Comments: ABDOMEN SOFT TO PALPATION,PT DENIES FEELING ANY UC'S. FHR Baseline Rate: 135 Monitor Mode: External US Variability: Moderate 6-25 bpm Accelerations: 15X15 Decelerations: None Category: Category I Pain Presence: None/Denies Datetime: 08/25/2017 19:38 Stage of : Antepartum Assessment Type: Ongoing Assessment Level of Consciousness: Fully Conscious DTR's/Clonus: DTRs 2+; No Clonus Headache: Denies Blurred Vision: No Respiratory Effort: Unlabored; Regular Rhythm; Equal Expansion Breath Sounds, Left: Clear and Equal Breath Sounds, Right: Clear and Equal Nausea/Vomiting: Denies RUQ Epigastric Pain: Denies Lower Extremities Edema: None Degree: None Upper Extremities Edema: None Degree: None Facial Edema: None Temperature Route: Oral History of Falling: (0) No Secondary Diagnosis: (0) No Ambulatory Aid: (0) Bedrest/Nurse Assist IV Therapy: (0) No Gait: (0) Normal/Bedrest/Immobile Mental Status: (0) Oriented to Own Ability Fall Score: 0 Fall Risk Score Definition: No Risk: No action required Pain Presence: None/Denies Datetime: 08/25/2017 19:00 Frequency: OCC Monitor Mode: External Quality: Mild Pattern: Normal: <= 5 Contractions in 10 Minutes Resting Tone [place]: Relaxed FHR Baseline Rate: 140 Monitor Mode: External US FHR Baseline Changes: No Baseline Change Variability: Moderate 6-25 bpm Accelerations: 15X15 Decelerations: None Category: Category I Pain Presence: None/Denies Datetime: 08/25/2017 18:00 Monitor Mode: External Resting Tone [place]: Relaxed FHR Baseline Rate: 135 Monitor Mode: External US FHR Baseline Changes: No Baseline Change Variability: Moderate 6-25 bpm Accelerations: 15X15 Decelerations: None Category: Category I Pain Presence: None/Denies Datetime: 08/25/2017 17:00 Monitor Mode: External Resting Tone [place]: Relaxed FHR Baseline Rate: 125 Monitor Mode: External US FHR Baseline Changes: No Baseline Change Variability: Moderate 6-25 bpm Accelerations: 15X15 Decelerations: None Category: Category I Pain Presence: None/Denies Datetime: 08/25/2017 16:00 Monitor Mode: External Resting Tone [place]: Relaxed FHR Baseline Rate: 130 Monitor Mode: External US FHR Baseline Changes: No Baseline Change Variability: Moderate 6-25 bpm Accelerations: 15X15 Decelerations: None Category: Category I Pain Presence: None/Denies Datetime: 08/25/2017 15:00 Assessment Type: Admission Assessment Vaginal Bleeding: None Level of Consciousness: Fully Conscious DTR's/Clonus: DTRs 2+; No Clonus Headache: Denies Blurred Vision: No Respiratory Effort: Unlabored; Regular Rhythm; Equal Expansion Breath Sounds, Left: Clear and Equal Breath Sounds, Right: Clear and Equal Nausea/Vomiting: Denies RUQ Epigastric Pain: Denies Lower Extremities Edema: None Degree: None Upper Extremities Edema: None Degree: None Facial Edema: None History of Falling: (0) No Secondary Diagnosis: (0) No Ambulatory Aid: (0) Bedrest/Nurse Assist IV Therapy: (20) Yes Gait: (0) Normal/Bedrest/Immobile Mental Status: (0) Oriented to Own Ability Fall Score: 20 Fall Risk Score Definition: No Risk: No action required Pain Scale: 0 Pain Presence: None/Denies Pain Type: N/A Datetime: 08/25/2017 14:56 Stage of : Antepartum Datetime: 08/25/2017 14:30 Stage of : OB Triage Time of Arrival: 08/25/2017 14:30 EGA: 34.4 Arrived From: Other Unit in Hospital Level of Consciousness: Fully Conscious Frequency: IRREGULAR Monitor Mode: External Duration (sec)2399: 70-80 Quality: Mild Resting Tone [place]: Relaxed FHR Baseline Rate: 125 Monitor Mode: External US Variability: Moderate 6-25 bpm Accelerations: 15X15 Decelerations: None Pain Scale: 0 Pain Goal: 3 Vaginal Bleeding: None Datetime: 08/25/2017 13:30 Stage of : OB Triage Level of Consciousness: Fully Conscious Frequency: 2UC/HR Monitor Mode: External Duration (sec)2398: 70-80 Quality: Mild Resting Tone [place]: Relaxed FHR Baseline Rate: 125 Monitor Mode: External US Variability: Moderate 6-25 bpm Accelerations: 15X15 Decelerations: None Pain Scale: 0 Pain Goal: 3 Vaginal Bleeding: None Datetime: 08/25/2017 12:30 Stage of : OB Triage Level of Consciousness: Fully Conscious Frequency: 1UC Monitor Mode: External Duration (sec)2399: 60 Quality: Mild Resting Tone [place]: Relaxed FHR Baseline Rate: 135 Monitor Mode: External US Variability: Moderate 6-25 bpm Accelerations: 15X15 Decelerations: None Pain Scale: 0 Pain Goal: 3 Vaginal Bleeding: None Datetime: 08/25/2017 11:30 Stage of : OB Triage Level of Consciousness: Fully Conscious Frequency: 2UC/HR Monitor Mode: External Duration (sec)2399: 80-90 Quality: Mild Resting Tone [place]: Relaxed FHR Baseline Rate: 135 Monitor Mode: External US Variability: Moderate 6-25 bpm Accelerations: 15X15 Decelerations: None Category: Category I Pain Scale: 0 Pain Goal: 3 Vaginal Bleeding: None Datetime: 08/25/2017 10:26 Fall Score: 0 Fall Risk Score Definition: No Risk: No action required
--- NOTE | 2017-08-30 16:48 | QN ---
Documentation Comment iup 35 weeks fu for DAVID pt doing well vss us wnl a/p iup 35 weeks david wnl fu with [facility] RAUL AGUILAR MD Aug 30, 2017 16:48
== END 2017-08-30 12:35 | disposition home or self-care (01) ==
LOC: OBT 08:07 → L-D 08:07 → OBT 12:35
PROVIDERS: ATTEND Obstetrics & Gynecology
DX: O41.93X0 Disorder of amniotic fluid and membranes, unspecified, third trimester, not applicable or unspecified (principal); Z3A.35 35 weeks gestation of pregnancy
CPT/HCPCS: 36415; 76815; 76818; 81001; 96360; 96361; J7120; Z7500; G0463

== ENCOUNTER 2017-08-31 08:20 | Inpatient (IN) | payer MEDICAID ==
[~2017-08-31] VITALS: Ht 157.5 cm; Wt 62.7 kg
[2017-08-31 09:15] VITALS: Ht 157.5 cm; Wt 62.7 kg
[2017-08-31 09:16] VITALS: BP 112/75; PULSE 90; RESP 18
--- NOTE | 2017-08-31 10:50 | RADRPT ---
PROCEDURE: US OB biophysical profile. CLINICAL INDICATION: decreased movements, vaginal spotting TECHNIQUE: Multiple sonographic images of the pelvis were obtained. The images were reviewed on a PACS workstation. COMPARISON: No prior studies are available for comparison. FINDINGS: There is a single viable intrauterine gestation. Cardiac activity is present with 152 beats per min [place]. There is a vertex presentation. The placenta is anterior. There is no evidence of placental abruption. There is a decreased amount of amniotic fluid with an DAVID = 4.7 cm. Biophysical profile: movement 2/2 tone 2/2. breathing 2/2 DAVID 0/2 Total 04/09 RPTAT: AA . IMPRESSION: Decreased biophysical profile. Oligohydramnios. . .Tyrone Nassar MD, MD Date Time Electronically viewed and signed by .Tyrone Nassar MD, MD on 08/31/2017 10:50 .S/
--- NOTE | 2017-08-31 10:50 | RADRPT ---
PROCEDURE: US OB biophysical profile. CLINICAL INDICATION: decreased movements, vaginal spotting TECHNIQUE: Multiple sonographic images of the pelvis were obtained. The images were reviewed on a PACS workstation. COMPARISON: No prior studies are available for comparison. FINDINGS: There is a single viable intrauterine gestation. Cardiac activity is present with 152 beats per min [place]. There is a vertex presentation. The placenta is anterior. There is no evidence of placental abruption. There is a decreased amount of amniotic fluid with an DAVID = 4.7 cm. Biophysical profile: movement 2/2 tone 2/2. breathing 2/2 DAVID 0/2 Total 04/09 RPTAT: AA . IMPRESSION: Decreased biophysical profile. Oligohydramnios. . .Tyrone Nassar MD, MD Date Time Electronically viewed and signed by .Tyrone Nassar MD, MD on 08/31/2017 10:50 .S/
--- NOTE | 2017-08-31 10:50 | RADRPT ---
PROCEDURE: US OB biophysical profile. CLINICAL INDICATION: decreased movements, vaginal spotting TECHNIQUE: Multiple sonographic images of the pelvis were obtained. The images were reviewed on a PACS workstation. COMPARISON: No prior studies are available for comparison. FINDINGS: There is a single viable intrauterine gestation. Cardiac activity is present with 152 beats per min [place]. There is a vertex presentation. The placenta is anterior. There is no evidence of placental abruption. There is a decreased amount of amniotic fluid with an DAVID = 4.7 cm. Biophysical profile: movement 2/2 tone 2/2. breathing 2/2 DAVID 0/2 Total 04/09 RPTAT: AA . IMPRESSION: Decreased biophysical profile. Oligohydramnios. . .Tyrone Nassar MD, MD Date Time Electronically viewed and signed by .Tyrone Nassar MD, MD on 08/31/2017 10:50 .S/
[2017-08-31] MEDS: LACTATED RINGER'S 1,000 ML IV SCH ×3 (14:04→21:24)
[2017-08-31] MEDS ORDERED: LACTATED RINGER'S 1,000 ML IV SCH (16:43)
[2017-08-31] MEDS ORDERED: IBUPROFEN 600 MG TAB PO PRN (17:00)
[2017-08-31] MEDS ORDERED: BUTORPHANOL 2 MG INJ IV PRN ×2 (17:00)
[2017-08-31] MEDS ORDERED: AMPICILLIN 2 GM/NS (PMX) 100 ML IV ONE (17:00)
[2017-08-31] MEDS ORDERED: LIDOCAINE 1% (MPF) 30 ML INJ INJ PRN (17:00)
[2017-08-31] MEDS ORDERED: CARBOPROST 250 MCG INJ IM PRN (17:00)
[2017-08-31] MEDS ORDERED: OXYTOCIN 30 UNITS/LR 500 ML IV SCH ×2 (17:00)
[2017-08-31] MEDS ORDERED: MISOPROSTOL 200 MCG TAB PR PRN (17:00)
[2017-08-31] MEDS ORDERED: OXYTOCIN 30 UNITS/LR 500 ML IV PRN (17:00)
[2017-08-31] MEDS ORDERED: METHYLERGONOVINE 0.2 MG INJ IM PRN (17:00)
[2017-08-31] MEDS ORDERED: LACTATED RINGER'S 1,000 ML IV PRN (17:00)
[2017-08-31] MEDS ORDERED: HYDROCODONE/APAP (5/325) TAB PO PRN (17:00)
[2017-08-31] MEDS: MISOPROSTOL 25 MCG CAPSULE PO SCH ×2 (17:18→21:23)
--- NOTE | 2017-08-31 18:04 | HP ---
Date/Time of Note Date/Time of Note DATE: 08/31/17 TIME: 17:37 OB - History Hx of Present Free Text/Dictation This is a 31 years old female EDC October 02, 2017 admitted at 35 weeks and 3 days with chief complaint of vaginal leaking fluid suspected premature rupture of membrane DAVID on August 30 10.5 today is down to 4.7 she has mild contraction every 2-3 minutes less than 50-70 seconds is transferred from antepartum to L&D for delivery, requires labor augmentation Estimated Due Date: Oct 02, 2017 : 1 Para: 0 Care: Limited Care Ultrasounds: Normal mid trimester US Obstetrical Complications: None Medical Complications: None Past Family/Social History * Past Medical, Surgical, Family and Obstetric Histories reviewed from chart. Rubella: immune RPR/VDRL: Negative GBS Status: Unknown HBsAG: Negative OB Admission Exam Vital Signs Vital Signs Vital Signs Date Time Temp Pulse Resp B/P Pulse Ox O2 Delivery O2 Flow Rate FiO2 08/31/17 09:16 97.6 90 18 112/75 Physical Exam HEENT: WNL Heart: Rhythm Normal Lungs: Clear, Equal Abdomen: WNL Extremities: Normal Cervical Dilatation: 1cm Effacement: Other (60%) Station: -2 Membranes: Ruptured Amniotic Fluid: Unevaluable Heart Rate: 130's Accelerations: Accelerations Present Decelerations: No Decelerations Varibility: Moderate Contractions on Admission: >10 Minutes Apart Intensity: Mild Last 72 hours Lab Results CBC & BMP 08/31/17 14:00 Liver Function Test 08/31/17 14:00 Alanine Aminotransferase (ALT/SGPT) 14 Albumin 4.0 Alkaline Phosphatase 216 H Aspartate Amino Transf (AST/SGOT) 26 Direct Bilirubin 0.00 Total Protein 7.5 OB Assessment/Plan Reason for admission: other (35 weeks 3 days admitted for premature rupture of membrane low DAVID in early labor) Other plan: This is a 31 years old female EDC of October 02, 2017 admitted to the hospital and in the unit with suspicion of a mature rupture of membrane with low DAVID her DAVID went down from 10.5 to-4.7 she underwent evaluation for premature rupture of membrane ROM plus positive she was transferred from triage unit to L&D in early labor, she has been covered with antibiotic due to premature rupture of member requires labor augmentation for delivery, Her blood pressure at time is moderately elevated with contraction her admitting blood pressure is 124/73 ,she denies headache blurry vision epigastric pain, her urine shows 1+ protein, possible mild PIH ,we consider starting her on magnesium sulfate for seizure prevention. CHRISTEL ARBOLEDA MD Aug 31, 2017 17:49
[2017-08-31] MEDS ORDERED: AMPICILLIN 1 GM/NS (PMX) 50 ML IV SCH (21:00)
[2017-09-01] MEDS ORDERED: LACTATED RINGER'S 1,000 ML IV* SCH (00:33)
[2017-09-01] MEDS ORDERED: OXYTOCIN 30 UNITS/LR 500 ML IV SCH (00:33)
--- NOTE | 2017-09-01 00:33 | LDN ---
Date/Time of Note Date/Time of Note DATE: 09/01/17 TIME: 00:30 Delivery Summary of a viable baby boy weighing 2110 grams or 4# 10 oz, 18.5" long, and with Apgars of 8/9. Weeks of Gestation 35w 4d Placenta Delivered: Spontaneously Meconium: none Episiotomy: No Perineal laceration: 1 Laceration repair: First degree perineal laceration and bilateral vaginal lacerations all repaired with 2-0 chromic. Anesthesia type: None Estimated blood loss: 200 Sponge & Needle done & correct: Yes All needle counts correct: Yes Any foreign bodies felt in the: No (vagina) Problems: Infant Delivery Information Sex Sex: male Apgars 1 Minute: 8 5 Minute: 9 Suctioning Nose & mouth suctioned at richar: Yes Delee suction performed: No Umbilical Cord Umbilical cord with: 3 Vessels Cord presentations: no nuchal cord Cord Blood was obtained: Yes Mother & Baby Disposition Disposition Mom & Baby to Maternity; Good: Yes Baby to NICU: No LESTER FELIZ MD Sep 01, 2017 00:33
[2017-09-01] MEDS ORDERED: METHYLERGONOVINE 0.2 MG INJ IM PRN (01:00)
[2017-09-01] MEDS ORDERED: CARBOPROST 250 MCG INJ IM PRN (01:00)
[2017-09-01] MEDS ORDERED: MISOPROSTOL 200 MCG TAB PR PRN (01:00)
[2017-09-01] MEDS ORDERED: IBUPROFEN 600 MG TAB PO PRN (01:00)
[2017-09-01] MEDS ORDERED: OXYTOCIN 30 UNITS/LR 500 ML IV PRN (01:00)
[2017-09-01] MEDS ORDERED: HYDROCODONE/APAP (5/325) TAB PO PRN (01:00)
[2017-09-01] MEDS ORDERED: LANOLIN 7 GM TUBE TOP PRN (01:00)
[2017-09-01 02:00] VITALS: BP 120/87; PULSE 72; RESP 20
[2017-09-01 02:30] VITALS: BP 113/81; PULSE 84; RESP 19
[2017-09-01 08:45] VITALS: BP 111/66; PULSE 82; RESP 18
[2017-09-01] MEDS ORDERED: PRENATAL VITAMIN PO SCH (09:00)
[2017-09-01 16:25] VITALS: BP 110/70; PULSE 84; RESP 18
[2017-09-01 19:30] VITALS: BP 119/77; PULSE 78; RESP 19
[2017-09-02 04:01] VITALS: BP 120/79; PULSE 78; RESP 19
[2017-09-02 08:15] VITALS: BP 103/66; PULSE 70; RESP 18
--- NOTE | 2017-09-02 13:13 | QN ---
Documentation Comment Post normal vaginal delivery day 1 Afebrile Vital signs are stable Abdomen soft uterus firm lochia normal extremity normal, ambulation encouraged CHRISTEL ARBOLEDA MD Sep 02, 2017 13:13
[2017-09-02 16:00] VITALS: BP 107/65; PULSE 63; RESP 17
[2017-09-02 19:45] VITALS: BP 110/74; PULSE 79; RESP 18
[2017-09-03 04:00] VITALS: BP 115/71; PULSE 60; RESP 18
[2017-09-03 08:30] VITALS: BP 107/70; PULSE 77
[2017-09-03] MEDS ORDERED: DIPHTH/TET/ACEL PERTUSS (ADULT) 0.5 ML VIAL IM* ONE (09:00)
--- NOTE | 2017-09-03 10:19 | PD.PPDC ---
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 Instruction Diagnosis Final Diagnosis: Post normal vaginal delivery day 2 Condition Patient Condition: Good Diet Diet: Resume Regular Diet Activity/Restrictions Restrictions: No Exercising No Lifting No Driving No Sexual Activity Nothing in the Vagina No [place] No Tampons, douche Follow-up Follow-up with Physician: 2, Week/Weeks Provider Information: instruction given recommended to make appointment to be seen at the clinic in 2 weeks Return to clinic for DIRECTOR OF HUMAN RESOURCES Instructions: Fever greater than 101 Chills Worsening abdominal pain Excessive Vaginal Bleeding More than 2 pads per hour Unable to tolerate diet OB Instructions: Breast Tenderness Depression Blurried Vision Headache Surgical Instructions: Incisional Drainage Incisional Redness CHRISTEL ARBOLEDA MD Sep 03, 2017 10:19
--- NOTE | 2017-09-03 10:19 | PD.PPDC ---
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
--- NOTE | 2017-09-03 10:19 | PD.PPDC ---
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
--- NOTE | 2017-09-03 10:22 | DS ---
Date/Time of Note Date/Time of Note DATE: 09/03/17 TIME: 10:21 Discharge Summary Admission/Discharge Info Admit Date/Time Aug 31, 2017 at 12:30 Discharge Date/Time September 03, 2017 at 11 AM Discharge Diagnosis Post normal vaginal delivery day 2 Patient Condition: Good Procedures Normal vaginal delivery Hx of Present Illness Term Hospital Course Satisfactory uneventful Home Meds Reported Medications Vit No.124/Iron/FA ( Vitamin Tablet) 1 Each Tablet, 1 EACH PO DAILY, TAB 08/25/17 Follow-up Plan instructions given recommended to make appointment to be seen at the clinic in 2 weeks Primary Care Provider Care Physician No Primary Time spent on discharge: < 30 minutes CHRISTEL ARBOLEDA MD Sep 03, 2017 10:22
== END 2017-09-03 15:30 | disposition home or self-care (01) | DRG 775 ==
LOC: L-D 08:20 → OBT 08:20 → OBG 12:30 → OBT 13:16 → L-D 16:38 → PP1 09-01 02:19
PROVIDERS: ADMIT Obstetrics & Gynecology; ATTEND Obstetrics & Gynecology
PROC: 10E0XZZ Delivery of Products of Conception, External Approach (ICD-10-PCS; principal; 2017-09-01)
PROC: 0HQ9XZZ Repair Perineum Skin, External Approach (ICD-10-PCS; 2017-09-01)
PROC: 3E0P3VZ Introduction of Hormone into Female Reproductive, Percutaneous Approach (ICD-10-PCS; 2017-09-01)
DX: O60.14X0 Preterm labor third trimester with preterm delivery third trimester, not applicable or unspecified (principal); O70.0 First degree perineal laceration during delivery; Z3A.35 35 weeks gestation of pregnancy; Z37.0 Single live birth
CPT/HCPCS: 76818; 80053; 80307; 81001; 84112; 85025; 86592; 86900; 86901; 87340; 88307; 90715; 99464; G0463; J0290; J0595; J2590; J7120